=== PATIENT | female | born 1955 | race African-American/Black ===

== ENCOUNTER 2017-04-05 11:46 | Emergency (ER) | payer OTHER ==
[~2017-04-05] VITALS: Ht 154.9 cm; Wt 109.0 kg
[~2017-04-05 11:46] MED LIST: ALBU8.5H3 INH; AMIT25TA9 PO; ATOR40TA68 PO; AZIT250T6 PO; DILT120C79 PO; FLOV110 INHALATION; GABA-526 PO; LANT3I SC; LISI20TA11 PO; MAXZ25 PO; OMEP20CA16 PO; PIOG15TA4 PO; PRED50TA PO; SITA50TA2 PO; TIOT18CA INHALATION
[2017-04-05 11:52] VITALS: Ht 154.9 cm; Wt 109.0 kg
--- NOTE | 2017-04-05 15:34 | ERA ---
ER Documentation Chief Complaint Date/Time DATE: 04/05/17 TIME: 15:32 Chief Complaint LT KNEE PAIN X 2 DAYS , HEADCAHE X 1 WEEK HPI The patient is a 61-year-old female, presenting to the ER because of acute on chronic left knee pain for 2 days, worse with walking. She also complained of left-sided headache pain for the last 2 days she has similar symptoms previously performed the right-sided brain aneurysm. She denies fever, chills, syncope, near syncope, neck pain, chest pain, dyspnea, abdominal pain, vomiting. She smokes half a pack a day, denies drinking Past medical history: History of brain aneurysm requiring clipping approximately 10 years ago, asthma, hypertension, osteoarthritis, neuropathy ROS All systems reviewed and are negative except as per history of present illness. Medications Home Meds Reported Medications Fluticasone Propionate* (Flovent* HFA 110) 12 Gm Inha, 2 PUFF INHALATION BID, # 1 INHALER 09/09/16 Gabapentin* (Gabapentin*) 600 Mg Tablet, 600 MG PO BID, #60 TAB 09/09/16 Sitagliptin* (Januvia*) 50 Mg Tablet, 50 MG PO DAILY, #30 TAB 09/09/16 Pioglitazone Hcl* (Actos*) 15 Mg Tablet, 15 MG PO DAILY, #30 TAB 09/09/16 Omeprazole* (Omeprazole*) 20 Mg Capsule.dr, 20 MG PO DAILY, #30 CAP 09/09/16 Lisinopril* (Lisinopril*) 20 Mg Tablet, 20 MG PO DAILY, #30 TAB 09/09/16 Insulin Glargine* (Lantus*) 100 Unit/Ml Soln, 60 UNIT SC QAM, #1 VIAL 09/09/16 Diltiazem Hcl* (Diltiazem XT) 120 Mg Capsule.sa, 120 MG PO DAILY, #30 CAP 09/09/16 Amitriptyline Hcl* (Amitriptyline Hcl*) 25 Mg Tablet, 25 MG PO QHS, #30 TAB 09/09/16 Discontinued Reported Medications Tiotropium [place]* (Spiriva*) 18 Mcg Cap.w.dev, 1 CAP INHALATION DAILY, #30 CAP 09/09/16 Triamterene/Hctz* (Maxzide (37.5-25)*) 1 Each Tablet, 1 EACH PO DAILY, #30 TAB 09/09/16 Atorvastatin* (Atorvastatin*) 40 Mg Tablet, 40 MG PO QHS, #30 TAB 09/09/16 Discontinued Scripts Azithromycin* (Azithromycin*) 250 Mg Tablet, 500 MG PO ONCE for 5 Days, #1 TAB Prov:SARAH WHITNEY 09/09/16 Prednisone* (Prednisone*) 50 Mg Tablet, 50 MG PO DAILY, #5 TAB Prov:SARAH WHITNEY 09/09/16 Albuterol Sulfate* (Proair HFA*) 8.5 Gm Hfa.aer.ad, 2 PUFF INH Q4, #1 INHALER Prov:SARAH WHITNEY 09/09/16 Allergies Allergies: Coded Allergies: Penicillins (Verified Allergy, Unknown, 04/05/17) PMhx/Soc History of Surgery: Yes (HEAD, MARCH AND APRIL 2011) Anesthesia Reaction: No Hx Neurological Disorder: Yes ("STROKE",ANEURYSM) Hx Respiratory Disorders: Yes (ASTHMA) Hx Cardiac Disorders: No Hx Psychiatric Problems: No Hx Miscellaneous Medical Probl: Yes (HTN) Hx Alcohol Use: No Hx Substance Use: No Hx Tobacco Use: No Physical Exam Vitals Vital Signs Date Time Temp Pulse Resp B/P Pulse Ox O2 Delivery O2 Flow Rate FiO2 04/05/17 18:35 84 17 170/80 98 Room Air 04/05/17 11:52 98.2 98 18 147/79 95 Physical Exam Const: No acute distress. Head: Atraumatic. Eyes: Normal Conjunctiva. ENT: Normal External Ears, Nose and Mouth. Neck: Full range of motion. No meningismus. Resp: Clear to auscultation bilaterally. Cardio: Regular rate and rhythm, no murmurs. Abd: Soft, non distended, normal bowel sounds, non tender. Skin: No petechiae or rashes. Back: No midline or flank tenderness. Ext: Left knee with crepitus, no erythema, not warm to touch, no calf tenderness Neur: Awake and alert. No focal deficit Psych: Normal Mood and Affect. Result Diagram: 04/05/17 1550 04/05/17 1550 Results 24 hrs Laboratory Tests Test 04/05/17 15:50 White Blood Count 6.210^3/ul Red Blood Count 5.0910^6/ul Hemoglobin 16.0g/dl Hematocrit 49.6% Mean Corpuscular Volume 97.4fl Mean Corpuscular Hemoglobin 31.4pg Mean Corpuscular Hemoglobin Concent 32.3g/dl Red Cell Distribution Width 14.4% Platelet Count 30242^3/UL Mean Platelet Volume 11.7fl Neutrophils % 51.8% Lymphocytes % 35.1% Monocytes % 11.1% Eosinophils % 1.1% Basophils % 0.6% Nucleated Red Blood Cells % 0.0/100WBC Neutrophils # 3.210^3/ul Lymphocytes # 2.210^3/ul Monocytes # 0.710^3/ul Eosinophils # 0.110^3/ul Basophils # 0.010^3/ul Nucleated Red Blood Cells # 0.010^3/ul Prothrombin Time 13.1Sec Prothrombin Time Ratio 1.0 INR International Normalized Ratio 0.99 Activated Partial Thromboplast Time 27.6Sec Sodium Level 144mmol/L Potassium Level 4.2mmol/L Chloride Level 105mmol/L Carbon Dioxide Level 27mmol/L Anion Gap 16 Blood Urea Nitrogen 13mg/dl Creatinine 0.93mg/dl Glucose Level 107mg/dl Calcium Level 9.5mg/dl Current Medications Medications (Trade) Dose Ordered Sig/Mary Route PRN Reason Start Time Stop Time Status Last Admin Dose Admin IV Flush 10 ml 10 ml STK-MED ONCE .ROUTE 04/05/17 17:24 04/05/17 17:25 DC Sodium Chloride (NS) 100 ml @ ud STK-MED ONCE .ROUTE 04/05/17 17:24 04/05/17 17:25 DC Iodixanol (Visipaque Locm) 100 ml STK-MED ONCE .ROUTE 04/05/17 17:24 04/05/17 17:25 DC Procedures/[place] [id number] Radiology Main Line: [phone] DIAGNOSTIC IMAGING REPORT Patient: ESTELLA MEDINA : 1955 Age: 61 Sex: F MR #: [id number] DOS: 04/05/17 1545 Ordering MD: RYAN RED MD Location: E/R Room/Bed: PROCEDURE: CTA Head and neck. CLINICAL INDICATION: Aneurysm. Postoperative. Arterial dissection. TECHNIQUE: CTA of the head and neck was obtained . Sagittal and coronal reformations and MIPs were provided. Images were obtained prior following the intravenous contrast administration of 100 cc of Visipaque 320 contrast. The administered radiation dose was CTDI vol = 32.17, 20.07 mGy, DLP = 16.09, 795.66 mGy-cm. Coronal and sagittal as well as maximal intensity projection reformations were obtained. Direct measurements of vessel diameters was made in reference to measurements of the distal internal carotid artery diameter. One or more of the following dose reduction techniques were used: Automated exposure control, Adjustment of the mA and/or kV according to patient size, or Use of iterative reconstruction technique. COMPARISON: There are no similar studies submitted for comparison. FINDINGS: CTA neck: Aorta: Normal in caliber. There are mild vascular calcifications within the aortic arch. Right common carotid artery: Patent without evidence of stenosis.There is a retropharyngeal course of the common carotid artery. Right internal carotid artery: There is tortuosity of the right internal carotid artery. There are mild basilar calcifications without internal carotid artery stenosis by NASCET criteria. Right external carotid artery: Patent without evidence of stenosis. Left common carotid artery: Patent without evidence of stenosis.There is a retropharyngeal course of the common carotid artery. There is lobulation of the distal left common carotid artery which is indeterminate. Left internal carotid artery: The left carotid bulb and internal carotid artery are symmetrically larger compared to the right. There is no internal carotid artery stenosis by NASCET criteria. Left external carotid artery: Patent without evidence of stenosis. V1/V2 vertebral arteries: Patent bilaterally without evidence of stenosis. Vertebral artery dominance: Left. CTA head: Carotid arteries: There are mild to moderate bilateral cavernous and supraclinoid carotid artery vascular calcifications. This causes moderate right and mild left supraclinoid carotid artery stenosis. Anterior cerebral arteries: Patent bilaterally without evidence of stenosis. Middle cerebral arteries: Patent bilaterally without evidence of stenosis. Posterior cerebral arteries: Patent bilaterally without evidence of stenosis. Anterior communicating artery: Present. Posterior communicating arteries: Present bilaterally and prominent on the left. Basilar artery: There is mild irregularity of the basilar artery. Patent without evidence of stenosis. V3/V4 Vertebral arteries: Patent bilaterally without evidence of stenosis. Aneurysm: There is aneurysm clip noted within the mid right M1 middle cerebral artery. There is a 0.7 mm focus of enhancement medial to the aneurysm clip which may represent a small area of residual aneurysm (image 171 series 2). There is fusiform aneurysmal dilatation of the left distal supraclinoid carotid artery/ICA terminus which measures up to 5.6 mm in width (image 168 series 2). Just medial to this region there is a 3.0 x 2.0 mm inferiorly nearly oriented left ICA terminus aneurysm (image 171 series 2). Venous sinuses: Patent. CT head with contrast: Right frontal pterional craniectomy with cranioplasty is noted. There is subjacent right frontal temporal encephalomalacia. The ventricles and sulci are within normal limits. There is no gross intracranial hemorrhage given limitations. There is no mass effect. No midline shift is identified. There is no loss of lopez-white differentiation to suggest acute infarction. The orbits are within normal limits. The paranasal sinuses are well aerated. No destructive osseous lesion is identified. CT neck: There is no cervical adenopathy. There are moderate to severe emphysematous changes within the lungs. There is straightening of the normal cervical lordosis. There are mild degenerate change within the cervical spine. IMPRESSION: CTA Head 1. Right mid M1 aneurysm clip. There is a 0.7 mm focus of enhancement medial to the aneurysm clip which may represent a small residual aneurysm. 2. There is fusiform dilatation of the left supraclinoid carotid artery/ICA terminus measuring up to 5.6 mm. There is an adjacent medial inferiorly oriented 2 x 3 mm left ICA terminus aneurysm with a wide neck. Neurointerventional/neurosurgical evaluation is recommended. 3. Moderate right and mild left supraclinoid carotid artery stenosis. CTA Neck 1. No evidence of carotid artery or vertebral artery dissection. 2. Mild atherosclerotic disease without bilateral cervical internal carotid artery stenosis by NASCET criteria. 3. The left carotid bulb is asymmetrically dilated compared to the right and demonstrates lobulation within the distal left common carotid artery is indeterminate. 4. Moderate to severe emphysematous changes within the lungs. CT head Limited evaluation for intracranial hemorrhage on noncontrast CT. 1. Right frontotemporal craniectomy/cranioplasty with subjacent right frontal temporal encephalomalacia and subcortical gliosis. 2. No gross intracranial hemorrhage. Noncontrast CT of the head may be performed. There is limited evaluation for subarachnoid hemorrhage on post contrast imaging. Further findings as detailed above. RPTAT: PP .Jose Martines MD, MD Date Time Electronically viewed and signed by .Jose Martines MD, MD on 04/05/2017 18:30 .F/ CC: RYAN RED MD [place] [id number] Radiology Main Line: [phone] DIAGNOSTIC IMAGING REPORT Patient: ESTELLA MEDINA : 1955 Age: 61 Sex: F MR #: [id number] DOS: 04/05/17 1545 Ordering MD: RYAN RED MD Location: E/R Room/Bed: PROCEDURE: Left knee series CLINICAL INDICATION: Pain TECHNIQUE: AP, tunnel view and lateral view are obtained of the right knee COMPARISON: None available FINDINGS: The osseous structures are intact with no evidence of fracture or subluxation. No joint effusion is evident. The soft tissues are remarkable for moderate knee effusion. The vascular calcifications are present. Severe patellofemoral joint space narrowing and osteophyte formation is present with mild joint space narrowing of the medial and lateral joint compartments. IMPRESSION: 1. No acute fractures or dislocations. 2. Severe patellofemoral joint space narrowing and mild medial and lateral compartment joint space narrowing and osteophyte formation. 3. Atherosclerotic vascular disease. RPTAT: HDC .Neela Coughlin MD, MD Date Time Electronically viewed and signed by .Neela Coughlin MD, on 04/05/2017 16: 23 .C/ CC: RYAN RED MD [place] [id number] Radiology Main Line: [phone] DIAGNOSTIC IMAGING REPORT Patient: ESTELLA MEDINA : 1955 Age: 61 Sex: F [id number] DOS: 04/05/17 1545 Ordering MD: RYAN RED MD Location: E/R Room/Bed: PROCEDURE: CTA Head and neck. CLINICAL INDICATION: Aneurysm. Postoperative. Arterial dissection. TECHNIQUE: CTA of the head and neck was obtained . Sagittal and coronal reformations and MIPs were provided. Images were obtained prior following the intravenous contrast administration of 100 cc of Visipaque 320 contrast. The administered radiation dose was CTDI vol = 32.17, 20.07 mGy, DLP = 16.09, 795.66 mGy-cm. Coronal and sagittal as well as maximal intensity projection reformations were obtained. Direct measurements of vessel diameters was made in reference to measurements of the distal internal carotid artery diameter. One or more of the following dose reduction techniques were used: Automated exposure control, Adjustment of the mA and/or kV according to patient size, or Use of iterative reconstruction technique. COMPARISON: There are no similar studies submitted for comparison. FINDINGS: CTA neck: Aorta: Normal in caliber. There are mild vascular calcifications within the aortic arch. Right common carotid artery: Patent without evidence of stenosis.There is a retropharyngeal course of the common carotid artery. Right internal carotid artery: There is tortuosity of the right internal carotid artery. There are mild basilar calcifications without internal carotid artery stenosis by NASCET criteria. Right external carotid artery: Patent without evidence of stenosis. Left common carotid artery: Patent without evidence of stenosis.There is a retropharyngeal course of the common carotid artery. There is lobulation of the distal left common carotid artery which is indeterminate. Left internal carotid artery: The left carotid bulb and internal carotid artery are symmetrically larger compared to the right. There is no internal carotid artery stenosis by NASCET criteria. Left external carotid artery: Patent without evidence of stenosis. V1/V2 vertebral arteries: Patent bilaterally without evidence of stenosis. Vertebral artery dominance: Left. CTA head: Carotid arteries: There are mild to moderate bilateral cavernous and supraclinoid carotid artery vascular calcifications. This causes moderate right and mild left supraclinoid carotid artery stenosis. Anterior cerebral arteries: Patent bilaterally without evidence of stenosis. Middle cerebral arteries: Patent bilaterally without evidence of stenosis. Posterior cerebral arteries: Patent bilaterally without evidence of stenosis. Anterior communicating artery: Present. Posterior communicating arteries: Present bilaterally and prominent on the left. Basilar artery: There is mild irregularity of the basilar artery. Patent without evidence of stenosis. V3/V4 Vertebral arteries: Patent bilaterally without evidence of stenosis. Aneurysm: There is aneurysm clip noted within the mid right M1 middle cerebral artery. There is a 0.7 mm focus of enhancement medial to the aneurysm clip which may represent a small area of residual aneurysm (image 171 series 2). There is fusiform aneurysmal dilatation of the left distal supraclinoid carotid artery/ICA terminus which measures up to 5.6 mm in width (image 168 series 2). Just medial to this region there is a 3.0 x 2.0 mm inferiorly nearly oriented left ICA terminus aneurysm (image 171 series 2). Venous sinuses: Patent. CT head with contrast: Right frontal pterional craniectomy with cranioplasty is noted. There is subjacent right frontal temporal encephalomalacia. The ventricles and sulci are within normal limits. There is no gross intracranial hemorrhage given limitations. There is no mass effect. No midline shift is identified. There is no loss of lopez-white differentiation to suggest acute infarction. The orbits are within normal limits. The paranasal sinuses are well aerated. No destructive osseous lesion is identified. CT neck: There is no cervical adenopathy. There are moderate to severe emphysematous changes within the lungs. There is straightening of the normal cervical lordosis. There are mild degenerate change within the cervical spine. IMPRESSION: CTA Head 1. Right mid M1 aneurysm clip. There is a 0.7 mm focus of enhancement medial to the aneurysm clip which may represent a small residual aneurysm. 2. There is fusiform dilatation of the left supraclinoid carotid artery/ICA terminus measuring up to 5.6 mm. There is an adjacent medial inferiorly oriented 2 x 3 mm left ICA terminus aneurysm with a wide neck. Neurointerventional/neurosurgical evaluation is recommended. 3. Moderate right and mild left supraclinoid carotid artery stenosis. CTA Neck 1. No evidence of carotid artery or vertebral artery dissection. 2. Mild atherosclerotic disease without bilateral cervical internal carotid artery stenosis by NASCET criteria. 3. The left carotid bulb is asymmetrically dilated compared to the right and demonstrates lobulation within the distal left common carotid artery is indeterminate. 4. Moderate to severe emphysematous changes within the lungs. CT head Limited evaluation for intracranial hemorrhage on noncontrast CT. 1. Right frontotemporal craniectomy/cranioplasty with subjacent right frontal temporal encephalomalacia and subcortical gliosis. 2. No gross intracranial hemorrhage. Noncontrast CT of the head may be performed. There is limited evaluation for subarachnoid hemorrhage on post contrast imaging. Further findings as detailed above. RPTAT: PP .Jose Martines MD, MD Date Time Electronically viewed and signed by .Jose Martines MD, on 04/05/2017 18:30 .F/ CC: RYAN RED MD MEDICAL MAKING DECISION: The patient is a 61-year-old female, presenting with left-sided headache, concerning for ruptured brain aneurysm, and acute on chronic left knee pain. The differential diagnoses considered include but are not limited to subarachnoid hemorrhage, occult trauma, CVA, meningitis, encephalitis, hypertension, tension, migraine, cluster, narcotic withdrawal, cervical spine disease. Consultation: I discussed the patient with the on-call neurosurgeon Dr Begum at 7:45 PM who recommended transferring the patient to tertiary center I discussed the patient with Dr. Leary from [facility], she was made aware of the lab, the treatment, the neurosurgeon recommendation. She accepted the patient at 8 pm via ambulance Departure Diagnosis: Primary Impression: Brain aneurysm Additional Impression: Knee pain, left Condition: Stable Comments She will be transferred to [facility] for further evaluation The patient's blood pressure was elevated (>120/80) but appears stable without evidence of hypertension emergency or urgency. The patient was counseled about the risks of hypertension and urged to pursue outpatient monitoring and therapy within a week with their primary care physician. She was advised that she would need to have MRI of the left knee for further evaluation RYAN RED MD April 05, 2017 15:34
[2017-04-05 16:21] LABS: ADD SCAN DIFF NO
--- NOTE | 2017-04-05 16:24 | RADRPT ---
PROCEDURE: Left knee series CLINICAL INDICATION: Pain TECHNIQUE: AP, tunnel view and lateral view are obtained of the right knee COMPARISON: None available FINDINGS: The osseous structures are intact with no evidence of fracture or subluxation. No joint effusion is evident. The soft tissues are remarkable for moderate knee effusion. The vascular calcifications are present. Severe patellofemoral joint space narrowing and osteophyte formation is present with m ild joint space narrowing of the medial and lateral joint compartments. IMPRESSION: 1. No acute fractures or dislocations. 2. Severe patellofemoral joint space narrowing and mild medial and lateral compartment joint space narrowing and osteophyte formation. 3. Atherosclerotic vascular disease. RPTAT: HDC .Neela Coughlin MD, Date Time Electronically viewed and signed by .Neela Coughlin MD, on 04/05/2017 16:23 .C/
[2017-04-05 16:25] LABS: BASOPHILS % 0.6 % (0.0-2.0); EOSINOPHILS # 0.1 10^3/ul (0.0-0.5); EOSINOPHILS % 1.1 % (0.0-7.0); HEMATOCRIT 49.6 % (37.0-47.0); LYMPHOCYTES # 2.2 10^3/ul (0.8-2.9); LYMPHOCYTES % 35.1 % (15.0-51.0); MEAN CORPUSCULAR HEMOGLOBIN 31.4 pg (29.0-33.0); MEAN CORPUSCULAR HGB CONC 32.3 g/dl (32.0-37.0); MEAN CORPUSCULAR VOLUME 97.4 fl (82.0-101.0); MEAN PLATELET VOLUME 11.7 fl (7.4-10.4); MONOCYTE # 0.7 10^3/ul (0.3-0.9); MONOCYTES % 11.1 % (0.0-11.0); NEUTROPHIL # 3.2 10^3/ul (1.6-7.5); NEUTROPHILS % 51.8 % (39.0-77.0); PLATELET COUNT 211 10^3/UL (140-415); RED BLOOD COUNT 5.09 10^6/ul (4.20-5.40); RED CELL DISTRIBUTION WIDTH 14.4 % (11.5-14.5); WHITE BLOOD COUNT 6.2 10^3/ul (4.8-10.8)
[2017-04-05 16:41] LABS: INR 0.99; PROTIME 13.1 Sec (12.2-14.2)
[2017-04-05 16:42] LABS: PARTIAL THROMBOPLASTIN TIME 27.6 Sec (25.0-35.0)
[2017-04-05 16:43] LABS: POTASSIUM 4.2 mmol/L (3.5-5.1)
[2017-04-05 16:45] LABS: CREATININE 0.93 mg/dl (0.44-1.00)
[2017-04-05 16:46] LABS: CALCIUM 9.5 mg/dl (8.4-10.2)
[2017-04-05] MEDS ORDERED: SOD CHLORIDE 0.9% 100 ML ONE (17:24)
[2017-04-05] MEDS ORDERED: IODIXANOL LOCM 100 ML BTL ONE (17:24)
--- NOTE | 2017-04-05 18:31 | RADRPT ---
PROCEDURE: CTA Head and neck. CLINICAL INDICATION: Aneurysm. Postoperative. Arterial dissection. TECHNIQUE: CTA of the head and neck was obtained . Sagittal and coronal reformations and MIPs were provided. Images were obtained prior following the intravenous contrast administration of 100 cc of Visipaque 320 contrast. The administered radiation dose was CTDI vol = 32.17, 20.07 mGy, DLP = 16.0 9, 795.66 mGy-cm. Coronal and sagittal as well as maximal intensity projection reformations were ob tained. Direct measurements of vessel diameters was made in reference to measurements of the distal internal carotid artery diameter. One or more of the following dose reduction techniques were used: Automated exposure control, Adjustment of the mA and/or kV according to patient size, or Use of iter ative reconstruction technique. COMPARISON: There are no similar studies submitted for comparison. FINDINGS: CTA neck: Aorta: Normal in caliber. There are mild vascular calcifications within the aortic arch. Right common carotid artery: Patent without evidence of stenosis.There is a retropharyngeal course o f the common carotid artery. Right internal carotid artery: There is tortuosity of the right internal carotid artery. There are mild basilar calcifications without internal carotid artery stenosis by NASCET criteria. Right external carotid artery: Patent without evidence of stenosis. Left common carotid artery: Patent without evidence of stenosis.There is a retropharyngeal course of the common carotid artery. There is lobulation of the distal left common carotid artery which is in determinate. Left internal carotid artery: The left carotid bulb and internal carotid artery are symmetrically la rger compared to the right. There is no internal carotid artery stenosis by NASCET criteria. Left external carotid artery: Patent without evidence of stenosis. V1/V2 vertebral arteries: Patent bilaterally without evidence of stenosis. Vertebral artery dominance: Left. CTA head: Carotid arteries: There are mild to moderate bilateral cavernous and supraclinoid carotid artery vas cular calcifications. This causes moderate right and mild left supraclinoid carotid artery stenosis . Anterior cerebral arteries: Patent bilaterally without evidence of stenosis. Middle cerebral arteries: Patent bilaterally without evidence of stenosis. Posterior cerebral arteries: Patent bilaterally without evidence of stenosis. Anterior communicating artery: Present. Posterior communicating arteries: Present bilaterally and prominent on the left. Basilar artery: There is mild irregularity of the basilar artery. Patent without evidence of stenos is. V3/V4 Vertebral arteries: Patent bilaterally without evidence of stenosis. Aneurysm: There is aneurysm clip noted within the mid right M1 middle cerebral artery. There is a 0.7 mm focus of enhancement medial to the aneurysm clip which may represent a small area of residual aneurysm (image 171 series 2). There is fusiform aneurysmal dilatation of the left distal supracli noid carotid artery/ICA terminus which measures up to 5.6 mm in width (image 168 series 2). Just me dial to this region there is a 3.0 x 2.0 mm inferiorly nearly oriented left ICA terminus aneurysm (i mage 171 series 2). Venous sinuses: Patent. CT head with contrast: Right frontal pterional craniectomy with cranioplasty is noted. There is subjacent right frontal te mporal encephalomalacia. The ventricles and sulci are within normal limits. There is no gross intr acranial hemorrhage given limitations. There is no mass effect. No midline shift is identified. Ther e is no loss of lopez-white differentiation to suggest acute infarction. The orbits are within normal limits. The paranasal sinuses are well aerated. No destructive osseous lesion is identified. CT neck: There is no cervical adenopathy. There are moderate to severe emphysematous changes within the lungs . There is straightening of the normal cervical lordosis. There are mild degenerate change within t he cervical spine. IMPRESSION: CTA Head 1. Right mid M1 aneurysm clip. There is a 0.7 mm focus of enhancement medial to the aneurysm clip w hich may represent a small residual aneurysm. 2. There is fusiform dilatation of the left supraclinoid carotid artery/ICA terminus measuring up to 5.6 mm. There is an adjacent medial inferiorly oriented 2 x 3 mm left ICA terminus aneurysm with a wide neck. Neurointerventional/neurosurgical evaluation is recommended. 3. Moderate right and mild left supraclinoid carotid artery stenosis. CTA Neck 1. No evidence of carotid artery or vertebral artery dissection. 2. Mild atherosclerotic disease without bilateral cervical internal carotid artery stenosis by NASC ET criteria. 3. The left carotid bulb is asymmetrically dilated compared to the right and demonstrates lobulatio n within the distal left common carotid artery is indeterminate. 4. Moderate to severe emphysematous changes within the lungs. CT head Limited evaluation for intracranial hemorrhage on noncontrast CT. 1. Right frontotemporal craniectomy/cranioplasty with subjacent right frontal temporal encephalomala reuben and subcortical gliosis. 2. No gross intracranial hemorrhage. Noncontrast CT of the head may be performed. There is limite d evaluation for subarachnoid hemorrhage on post contrast imaging. Further findings as detailed above. RPTAT: PP .Jose Martines MD, Date Time Electronically viewed and signed by .Jose Martines MD, on 04/05/2017 18:30 .F/
[2017-04-05 21:18] VITALS: BP 190/90; PULSE 68; RESP 17
== END 2017-04-05 21:18 | disposition home or self-care (01) ==
LOC: E/R 11:46
DX: I67.1 Cerebral aneurysm, nonruptured (principal); I10 Essential (primary) hypertension; J45.909 Unspecified asthma, uncomplicated; Z79.4 Long term (current) use of insulin
CPT/HCPCS: 36415; 70496; 70498; 73562; 80048; 85025; 85610; 85730; Q9967; Z7502; Z7610

== ENCOUNTER 2017-11-19 20:42 | Emergency (ER) | payer OTHER ==
[~2017-11-19] VITALS: Ht 167.6 cm; Wt 102.9 kg
[~2017-11-19 20:42] MED LIST changes: -ALBU8.5H3 INH; -ATOR40TA68 PO; -AZIT250T6 PO; -MAXZ25 PO; -PRED50TA PO; -TIOT18CA INHALATION
[2017-11-19 20:52] VITALS: Ht 167.6 cm; Wt 102.9 kg
[2017-11-19] MEDS ORDERED: ONDANSETRON 4 MG INJ IV STA (21:18)
[2017-11-19] MEDS ORDERED: SOD CHLORIDE 0.9% 1,000 ML IV STA (21:18)
[2017-11-19] MEDS ORDERED: morphine 4 MG/ML VIAL IV STA (21:18)
[2017-11-19 21:32] LABS: BASOPHIL # 0.1 10^3/ul (0.0-0.1); BASOPHILS % 0.5 % (0.0-2.0); EOSINOPHILS # 0.1 10^3/ul (0.0-0.5); EOSINOPHILS % 0.5 % (0.0-7.0); HEMATOCRIT 46.9 % (37.0-47.0); HEMOGLOBIN 15.4 g/dl (12.0-16.0); LYMPHOCYTES # 1.9 10^3/ul (0.8-2.9); LYMPHOCYTES % 20.3 % (15.0-51.0); MEAN CORPUSCULAR HEMOGLOBIN 31.4 pg (29.0-33.0); MEAN CORPUSCULAR HGB CONC 32.8 g/dl (32.0-37.0); MEAN CORPUSCULAR VOLUME 95.7 fl (82.0-101.0); MEAN PLATELET VOLUME 10.9 fl (7.4-10.4); MONOCYTE # 0.9 10^3/ul (0.3-0.9); MONOCYTES % 9.6 % (0.0-11.0); NEUTROPHIL # 6.3 10^3/ul (1.6-7.5); NEUTROPHILS % 68.8 % (39.0-77.0); PLATELET COUNT 231 10^3/UL (140-415); RED CELL DISTRIBUTION WIDTH 13.7 % (11.5-14.5); WHITE BLOOD COUNT 9.1 10^3/ul (4.8-10.8)
[2017-11-19 21:48] LABS: ANION GAP 13 (8-16); BLOOD UREA NITROGEN 14 mg/dl (7-20); CALCIUM 9.4 mg/dl (8.4-10.2); CARBON DIOXIDE 24 mmol/L (21-31); CHLORIDE 108 mmol/L (97-110); GLUCOSE 139 mg/dl (70-220); POTASSIUM 4.2 mmol/L (3.5-5.1); SODIUM 141 mmol/L (135-144)
[2017-11-19] MEDS ORDERED: KETOROLAC 15 MG INJ IV ONE (21:59)
[2017-11-19 22:00] LABS: TROPONIN-I < 0.012 ng/ml (0.00-0.12)
[2017-11-19] MEDS ORDERED: INSU100I33 SC (22:08)
[2017-11-19] MEDS ORDERED: IBUP-1542 PO (22:09)
[2017-11-19] MEDS ORDERED: OMEP20CA16 PO (22:09)
[2017-11-19] MEDS ORDERED: TIOT18CA INHALATION (22:09)
[2017-11-19] MEDS ORDERED: TOPI25CA2 PO (22:11)
[2017-11-19] MEDS ORDERED: DYAZIDE PO (22:13)
[2017-11-19] MEDS ORDERED: ALBU18HF INHALATION (22:14)
[2017-11-19] MEDS ORDERED: EXEN2VIA SQ (22:15)
[2017-11-19] MEDS ORDERED: ATOR40TA68 PO (22:16)
--- NOTE | 2017-11-19 22:22 | RADRPT ---
PROCEDURE: XR Chest. CLINICAL INDICATION: Chest pain TECHNIQUE: Single frontal view of the chest was obtained COMPARISON: CR CHEST 09/09/2016 FINDINGS: The heart is enlarged. The thoracic aorta is calcified. There are mild left lower lobe atelectatic changes elisabeth The lungs are otherwise clear. There is no pleural effusion or pneumothorax. RPTAT: AA IMPRESSION: Mild cardiomegaly. Calcified aorta consistent with atherosclerotic disease. Mild left lower lobe atelectatic changes. .Bharathi Aiken MD, Date Time Electronically viewed and signed by .Bharathi Aiken MD, on 11/19/2017 22:21 .S/
--- NOTE | 2017-11-19 22:29 | RADRPT ---
PROCEDURE: XR right shoulder. CLINICAL INDICATION: Severe right shoulder pain. TECHNIQUE: AP Internal and external rotation views of the right shoulder were performed. COMPARISON: None. FINDINGS: There is normal osseous mineralization and alignment. No acute fracture or osseous lesion is identified. Marginal osteophytes at the inferior glenoid and medial humerus. The soft tissues are unremarkable. IMPRESSION: Degenerative changes of the glenohumeral joint with marginal osteophytes, and otherwise, no evident acute fracture. RPTAT: [facility] Physician Aubrey Date Time Electronically viewed and signed by Physician Aubrey on 11/19/2017 22:28 RS/
[2017-11-19 23:00] VITALS: BP 127/74; PULSE 74; RESP 15
[2017-11-20] MEDS ORDERED: HYDR-906 PO (00:22)
[2017-11-20] MEDS ORDERED: METH750T93 PO (00:22)
[2017-11-20] MEDS ORDERED: NAPR-688 PO (00:22)
[2017-11-20 00:26] VITALS: TEMP 98.8
[2017-11-20] MEDS ORDERED: KETOROLAC 30 MG INJ IV ONE (00:28)
[2017-11-20] MEDS ORDERED: HYDROCODONE/APAP (5/325) TAB PO ONE (00:30)
--- NOTE | 2017-11-20 00:32 | ERD ---
ER Documentation Chief Complaint Chief Complaint SOB-hx- copd, brain aneurysm, unable to raise right arm 1 hr, ago HPI 82-year-old female presents with severe pain to her right shoulder that over the course of several days to the point where she suddenly had shooting pain and was unable to move the arm secondary to the pain. Has no focal weaknesses. Rapid breathing with history of COPD states that she is mildly short of breath. Denies specific chest pain. Denies nausea or vomiting. No trauma to the area recently. ROS All systems reviewed and are negative except as per history of present illness. Medications Home Meds Active Scripts Naproxen* (Naproxen*) 500 Mg Tablet, 500 MG PO BID Y for PAIN, #20 TAB Prov:LUIS GALICIA DO 11/20/17 Methocarbamol* (Robaxin*) 750 Mg Tablet, 750 MG PO Q6H Y for MUSCLE SPASMS, #20 TAB Prov:LUIS GALICIA DO 11/20/17 Hydrocodone/Acetaminophen ([place] 5-325 Tablet) 1 Each Tablet, 1 EACH PO Q6, #20 TAB Prov:LUIS GALICIA DO 11/20/17 Reported Medications Atorvastatin* (Atorvastatin*) 40 Mg Tablet, 40 MG PO QHS, #30 TAB 11/19/17 Exenatide Microspheres (Bydureon) 2 Mg Vial, 2 MG SQ Q7D, VIAL 11/19/17 Albuterol Sulfate* (Ventolin HFA*) 18 Gm Hfa.aer.ad, 2 PUFF INHALATION Q6H Y for PRN, #1 INHALER 11/19/17 Triamterene-HCTZ (Dyazide) 37.5 - 25 Mg Cap, 1 CAP PO DAILY, CAP 11/19/17 Topiramate* (Topiramate*) 25 Mg Cap.sprink, 25 MG PO DAILY, CAP 11/19/17 Tiotropium [place]* (Spiriva*) 18 Mcg Cap.w.dev, 1 CAP INHALATION DAILY, #30 CAP 11/19/17 Omeprazole* (Omeprazole*) 20 Mg Capsule.dr, 20 MG PO DAILY, #30 CAP 11/19/17 Ibuprofen* (Ibuprofen*) 600 Mg Tablet, 600 MG PO DAILY Y for NEEDED, TAB 11/19/17 Insulin Glargine,Hum.rec.anlog (Basaglar Kwikpen U-100) 100 Unit/1 Ml Insuln.pen , 60 UNIT SC QAM 11/19/17 Gabapentin* (Gabapentin*) 600 Mg Tablet, 600 MG PO BID, #60 TAB 09/09/16 Sitagliptin* (Januvia*) 50 Mg Tablet, 50 MG PO DAILY, #30 TAB 09/09/16 Pioglitazone Hcl* (Actos*) 15 Mg Tablet, 15 MG PO DAILY, #30 TAB 09/09/16 Lisinopril* (Lisinopril*) 20 Mg Tablet, 20 MG PO DAILY, #30 TAB 09/09/16 Diltiazem Hcl* (Diltiazem XT) 120 Mg Capsule.sa, 120 MG PO DAILY, #30 CAP 09/09/16 Discontinued Reported Medications Fluticasone Propionate* (Flovent* HFA 110) 12 Gm Inha, 2 PUFF INHALATION BID, # 1 INHALER 09/09/16 Omeprazole* (Omeprazole*) 20 Mg Capsule.dr, 20 MG PO DAILY, #30 CAP 09/09/16 Insulin Glargine* (Lantus*) 100 Unit/Ml Soln, 60 UNIT SC QAM, #1 VIAL 09/09/16 Amitriptyline Hcl* (Amitriptyline Hcl*) 25 Mg Tablet, 25 MG PO QHS, #30 TAB 09/09/16 Allergies Allergies: Coded Allergies: Penicillins (Verified Allergy, Unknown, 11/19/17) PMhx/Soc History of Surgery: Yes (HEAD, MARCH AND APRIL 2011) Anesthesia Reaction: No Hx Neurological Disorder: Yes ("STROKE", ANEURYSM) Hx Respiratory Disorders: Yes (ASTHMA) Hx Cardiac Disorders: Yes (HTN) Hx Psychiatric Problems: No Hx Miscellaneous Medical Probl: Yes (DM) Hx Alcohol Use: No Hx Substance Use: No Hx Tobacco Use: Yes Smoking Status: Former smoker Physical Exam Vitals Vital Signs Date Time Temp Pulse Resp B/P Pulse Ox O2 Delivery O2 Flow Rate FiO2 11/20/17 00:26 98.8 11/19/17 23:00 74 15 127/74 98 Room Air 11/19/17 22:00 80 15 113/76 97 Room Air 11/19/17 21:29 88 15 152/85 94 Room Air 11/19/17 20:52 98.2 106 20 151/95 86 Physical Exam Const: [] Moderate distress, appears extremely uncomfortable. Head: Atraumatic Eyes: Normal Conjunctiva ENT: Normal External Ears, Nose and Mouth. Neck: Full range of motion..~ No meningismus or midline tenderness. Right upper trapezius muscle spasm Resp: Clear to auscultation bilaterally with tachypnea Cardio: Regular rate and rhythm, no murmurs Skin: No petechiae or rashes Back: No midline or flank tenderness Ext: No cyanosis, right upper trapezius muscle spasm, patient able to use hand and his holding arm just above thigh. Distal pulses intact. No deformities. Tenderness along the deltoid.. 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910^3/ul Monocytes # 0.910^3/ul Eosinophils # 0.110^3/ul Basophils # 0.110^3/ul Nucleated Red Blood Cells # 0.010^3/ul Sodium Level 141mmol/L Potassium Level 4.2mmol/L Chloride Level 108mmol/L Carbon Dioxide Level 24mmol/L Anion Gap 13 Blood Urea Nitrogen 14mg/dl Creatinine 1.10mg/dl Glucose Level 139mg/dl Calcium Level 9.4mg/dl Troponin I < 0.012ng/ml Current Medications Medications (Trade) Dose Ordered Sig/Mary Route PRN Reason Start Time Stop Time Status Last Admin Dose Admin Sodium Chloride (NS) 1,000 ml @ 1,000 mls/hr Q1H STAT IV 11/19/17 21:18 11/19/17 22:17 DC 11/19/17 21:31 Morphine Sulfate (morphine) 8 mg ONCE STAT IV 11/19/17 21:18 11/19/17 21:20 DC 11/19/17 21:30 Ondansetron HCl (Zofran Inj) 4 mg ONCE STAT IV 11/19/17 21:18 11/19/17 21:20 DC 11/19/17 21:30 Ketorolac Tromethamine (Toradol) 15 mg ONCE ONCE IV 11/19/17 21:59 11/19/17 22:04 DC 11/19/17 22:22 Acetaminophen/ Hydrocodone Bitart ([place] (5/325)) 1 tab ONCE ONCE PO 11/20/17 00:30 11/20/17 00:31 UNV Ketorolac Tromethamine (Toradol) 30 mg ONCE STAT IV 11/20/17 00:21 11/20/17 00:22 UNV Procedures/MDM Right upper arm spasm likely set off from degenerative joint disease which is been chronic. No signs of fracture dislocation. Patient has COPD but has otherwise clear lungs. Wants pain medication was given the patient was no longer tachypneic. She was given IV morphine and Toradol. Very low suspicion for acute coronary syndrome. Going to discharge her with Zonia Robaxin, naproxen. Discharging her with orthopedic follow-up to her primary care physician as well. She is placed in an arm sling. EKG interpretation: Sinus tachycardia rate of 103, normal axis, no ST or T-wave changes concerning for acute ischemia, normal intervals. Normal EKG except for sinus tach Monitor interpretation: Initial sinus tachycardia followed by normal sinus rhythm with no arrhythmias Chest x-ray interpretation: I see no acute process, no widened mediastinum, no pneumothorax, no infiltrates, no fractures Right shoulder x-ray interpretation: Generative joint disease without evidence of acute fracture dislocation or soft tissue abnormality. Departure Diagnosis: Primary Impression: Osteoarthritis Additional Impressions: Muscle spasm of right shoulder Renal insufficiency Condition: Stable Patient Instructions: The Shoulder Joint, Osteoarthritis: Coping with Pain, Muscle Spasm Additional Instructions: Call your primary care doctor TOMORROW for an appointment during the next 2-3 days. Request a referral with an orthopedist. See the doctor sooner or return here if your condition worsens before your appointment time. LUIS GALICIA DO Nov 20, 2017 00:32
== END 2017-11-20 00:45 | disposition home or self-care (01) ==
LOC: E/R 20:42
DX: M17.9 Osteoarthritis of knee, unspecified (principal); M62.838 Other muscle spasm; N28.9 Disorder of kidney and ureter, unspecified; I10 Essential (primary) hypertension; E11.9 Type 2 diabetes mellitus without complications; J44.9 Chronic obstructive pulmonary disease, unspecified; Z87.891 Personal history of nicotine dependence; Z79.4 Long term (current) use of insulin
CPT/HCPCS: 36415; 71010; 73030; 80048; 84484; 85025; 96374; 96375; 96376; J1885; J2270; J2405; J7030; Z7502; Z7610; 93005

== ENCOUNTER 2019-07-22 08:25 | Emergency (ER) | payer OTHER ==
[~2019-07-22] VITALS: Ht 152.4 cm; Wt 90.0 kg
[~2019-07-22 08:25] MED LIST changes: +ALBU18HF INHALATION; -AMIT25TA9 PO; +ATOR40TA68 PO; +DYAZIDE PO; +EXEN2VIA SQ; -FLOV110 INHALATION; +HYDR-4011 PO; +IBUP-1542 PO; +INSU100I33 SC; -LANT3I SC; +LISI-471 PO; -LISI20TA11 PO; +METH750T93 PO; +NAPR-688 PO; +PIOG15TA12 PO; -PIOG15TA4 PO; +TIOT18CA INHALATION; +TOPI25CA2 PO
[2019-07-22 08:28] VITALS: BP 160/89; PULSE 89; RESP 18; Ht 152.4 cm; Wt 90.0 kg
== END 2019-07-22 09:54 | disposition home or self-care (01) ==
LOC: FTE 08:25
DX: N81.10 Cystocele, unspecified (principal); I10 Essential (primary) hypertension; J45.909 Unspecified asthma, uncomplicated; E11.9 Type 2 diabetes mellitus without complications; Z79.4 Long term (current) use of insulin; Z86.73 Personal history of transient ischemic attack (TIA), and cerebral infarction without residual deficits; Z87.891 Personal history of nicotine dependence
CPT/HCPCS: 81001; Z7502; 99283